=== PATIENT | female | born 1995 | race Caucasian/White ===

== ENCOUNTER → 2018-03-03 | Outpatient (REF) | payer OTHER | LOC: M LAB REF 16:58 | DX: N39.0 Urinary tract infection, site not specified (principal) | CPT/HCPCS: 87186 ==

== ENCOUNTER 2019-02-15 09:21 | Inpatient (IN) | payer OTHER ==
[~2019-02-15] VITALS: Ht 154.9 cm; Wt 63.3 kg
[2019-02-15] VITALS (29 sets, daily range): BP systolic 112–142; BP diastolic 57–86
[2019-02-15] MEDS ORDERED: ACYC800T PO (09:45)
[2019-02-15] MEDS ORDERED: PREN1CHW PO (09:47)
[2019-02-15] MEDS ORDERED: IRON27TA2 PO (09:47)
[2019-02-15] MEDS ORDERED: C-251TAB PO (09:47)
[2019-02-15] MEDS ORDERED: LACTATED RINGER'S 1000 ML IV STA (10:02)
[2019-02-15] MEDS ORDERED: PENICILLIN G POTASSIUM IV 5 MU in D5W MINI-BAG PLUS 100 ML IV STA (10:02)
[2019-02-15 10:45] LABS: HEMATOCRIT 28.6 % (36.0-47.0); HEMOGLOBIN 9.8 g/dl (12.0-15.5); MEAN CORPUSCULAR HEMOGLOBIN 32.5 pg (27.0-33.0); MEAN CORPUSCULAR HGB CONC 34.3 g/dl (32.0-36.5); MEAN CORPUSCULAR VOLUME 94.7 fl (80.0-96.0); PLATELET COUNT, AUTOMATED 202 10^3/uL (150-450); RED BLOOD COUNT 3.02 10^6/uL (4.00-5.40); WHITE BLOOD COUNT 7.8 10^3/uL (4.0-10.0)
[2019-02-15] MEDS ORDERED: FENTANYL 2MCG/ML ROPIVACAINE 0.2% IN 0.9% NACL 100ML IVBAG As Ordered ONE (13:23)
[2019-02-15] MEDS: FENTANYL/ROPIVACAINE/NACL BAG 100 ML EPIDURAL SCH ×2 (15:05→20:59)
[2019-02-15] MEDS: LR 1,000 ML IV SCH ×2 (15:07→20:25)
--- NOTE | 2019-02-15 15:11 | HPEPDOC ---
Obstetrical History & Physical General Date of Admission Feb 15, 2019 at 10:05 History of Present Illness OB Considerations: - GBS postive - No PCN allergy - H/O MRSA, Negative swab #1 08/11/18, Swab #2, 08/23/18 Swab #3, 12/07/18: MRSA PCR on L&D Amy is a 24yo G1 at 38+4wks by LMP (JUSTIN [id number]) presents with ROM at 0000 [id number] - clear. She reports contractions every 5-6mins. She denies vaginal bleeding. Reports active movement. 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 Surgical History: Tonsilectomy, Lutts teeth, Other (Sting Ray Sabina removed from foot) Family History Family History Uncle: Down Syndrome Social History Marital Status: Psychosocial History: No pertinent psych hx * Smoker: non-smoker Alcohol: Denies Imunizations Tdap status: current Influenza Status: needs Allergies Coded Allergies: morphine (Verified Allergy, Intermediate, RASH, 02/15/19) TAPE (Verified Adverse Reaction, Mild, SKIN BLISTERS, 02/15/19) SILK TAPE Medications Scheduled Acyclovir (Acyclovir) 800 Mg Tablet, 800 MG PO DAILY Ascorbic Acid (Vitamin C) 250 Mg Tablet, 1 TAB PO BID Ferrous Gluconate (Iron) 236 Mg Tablet, 1 TAB PO BID Miscellaneous Medications Comb No.42/Folic Acid (Prena1 Chew Tablet) 1.4 Mg Tab.ch.bph, 1 CHW PO Physical Examination Physical Examination GENERAL: Alert and oriented times three. ABDOMEN: Gravid and non-tender to touch. FETUS: Is vertex (VTX) by sterile vaginal examination (SVE), fetus is vertex (VTX) by Abhilash. HEART RATE: Regular rate and rhythm. LUNGS: Clear to auscultation (CTA). EXTREMITIES: No edema. EFW 3300mg Pelvis Adequate for trial of labor Laboratory Data 24H LABS Laboratory Tests 2 02/15/19 10:07: Serology Scanned Report Hepatitis B Testing 02/15/19 10:33: Nucleated Red Blood Cells % (auto) 0.0 CBC/BMP Laboratory Tests 02/15/19 10:33 Red Blood Count 3.02 L, Mean Corpuscular Volume 94.7, Mean Corpuscular Hemoglobin 32.5, Mean Corpuscular Hemoglobin Concent 34.3, Red Cell Distribution Width 13.0 Urine Culture: No Growth Pertinent Laboratoy Data Blood Type: O+ RBC Antibody Screen: Negative HIV: Negative Hepatitis B: Negative Hepatitis C: Unknown Rapid Plasma Reagin: Nonreactive Rubella: Immune Varicella: Immune Chlamydia/Gonorrhea: Negative Group B Streptococcus: Positive Quad Screen Test: Negative Cystic Fibrosis: Negative Glucose Tolerance Test: 101 Anatomy Ultrasound Ultrasound Date: October 06, 2018 Placenta Location: Posterior Normal Anatomy: Yes Placenta Previa: No Steroid Therapy Steroid Therapy: No Vaginal Examination Dilation: 4 cm Effacement: 70% Station: -2 Cervical Consistency: Soft Cervical Position: Middle Presentation: Cephalic presentation Position: Vertex (occiput) Assessment Heart Rate (FHR): 130 Variability: Moderate Accelerations: Positive Decelerations: None Tocometer Contractions: Yes Frequency: regular, other (5-6) Duration: less than 60 seconds Strength: palpated as moderate Multi-drug resistant Organism: MRSA (3 Negative MRSA swabs) Assessment/Plan Assessment Amy is a 24yo G1 at 38+4wks by LMP (JUSTIN [id number]) grossly SROM at 0000 [id number] - clear. Cat I FHT. 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 Diet: clear. Group B Streptococcus (GBS) Positive - PCN ordered. Labs and intravenous (IV) per unit protocol. Counseled on Pitocin and augmentation of labor. Lactated Ringers (LR): Bolus [55] mL, then at [125] mL/hr. MRSA PCR ordered. Anesthesia consult PRN per patient request. Intermittent monitoring unless on Pitocin or otherwise indicated. Recheck DCE 4 to 6 hours from last exam or sooner if indicated. Minnie Oropeza DO Labor and Delivery Counseling I discussed external and internal monitoring and indicated, augmentation of labor, hemorrhage and blood transfusions (and risks of blood transfusions), antibiotic use, obstetric lacerations, and indications for operative vaginal delivery and c/s. Patient verbalized understanding and all questions were answered. MINNIE OROPEZA DO Feb 15, 2019 12:31
[2019-02-15] MEDS: PENICILLIN G POTASSIUM IV 2.5 MU in APPROPRIATE DILUENT 1 EA IV SCH ×3 (15:12→23:14)
[2019-02-15] MEDS ORDERED: ePHEDrine SULFATE 25 MG/5 ML(5MG/ML) SYRINGE IV PRN (15:30)
[2019-02-15] MEDS ORDERED: REFRIGERATOR IV KEYS XX PRN (15:30)
[2019-02-15] MEDS ORDERED: ONDANSETRON 4MG/2ML VIAL (J2405) IV PRN (15:30)
[2019-02-15] MEDS ORDERED: NALOXONE INJ 0.4 MG/1 ML VIAL (J2310) IV PRN (15:30)
[2019-02-15] MEDS ORDERED: LACTATED RINGER'S 1000 ML IV PRN (15:30)
[2019-02-15] MEDS ORDERED: EPIDURAL/PCA KEYS XX PRN (15:30)
[2019-02-15] MEDS ORDERED: EPIDURAL COMMENT XX SCH (15:30)
[2019-02-15] MEDS ORDERED: diphenhydrAMINE INJ 50MG/ML VIAL (J1200) IV PRN (15:30)
[2019-02-15] MEDS ORDERED: OXYTOCIN DRIP 30 UNITS in APPROPRIATE DILUENT 1 EA IV SCH (15:45)
[2019-02-15] MEDS ORDERED: ACETAMINOPHEN 500 MG TAB PO ONE (20:45)
--- NOTE | 2019-02-15 20:47 | IPNPDOC ---
Text Note Date of Service The patient was seen on 02/15/19. NOTE OB Considerations: - GBS postive - No PCN allergy - H/O MRSA, Negative swab #1 08/11/18, Swab #2, 08/23/18 Swab #3, 12/07/18: MRSA PCR on L&D, MRSA PCR on admission negative Amy is a 24yo G1 at 38+6wks by LMP (JUSTIN [id number]) presents with ROM at 0000 [id number] - clear. Went to recheck. She has had an epidural placed though still having some pain, and pitocin started for augmentations due to contractions spacing out. VS: reviewed, afebrile, normotensive GEN: WNWD, NAD ABD: Soft, Gravid EXT: no edema DCE 2029 Cat II: 135bpm, mod variability, + Accelerations, + variable TOCO: q2min on 10mU of Pitocin A/P: SIUP at 38+6wks, ROM at 0000 [id number], most recently Cat II for variable corrected with position changes - Continue to monitor - Continue PCN for GBS positive - Continue Pitocin and titrate per protocol - Continue IVF - Consult Anesthesia for pain control - Recheck DCE 2 to 4 hours from last exam or sooner if indicated. DO LISANDRA Patricia Fishbone, I+O VSCleveland, I+O Laboratory Tests 02/15/19 10:33 Red Blood Count 3.02 L, Mean Corpuscular Volume 94.7, Mean Corpuscular Hemoglobin 32.5, Mean Corpuscular Hemoglobin Concent 34.3, Red Cell Distribution Width 13.0 Vital Signs Date Time Temp Pulse Resp B/P (MAP) Pulse Ox O2 Delivery O2 Flow Rate FiO2 02/15/19 16:20 98.1 88 131/61 (84) 02/15/19 13:11 18 PABLITO OROPEZA DO Feb 15, 2019 20:47
[2019-02-16] VITALS (36 sets, daily range): BP systolic 110–159; BP diastolic 58–85
[2019-02-16] MEDS ORDERED: OXYTOCIN DRIP 30 UNITS in APPROPRIATE DILUENT 1 EA IV SCH ×2 (02:15→05:15)
[2019-02-16] MEDS ORDERED: METHYLERGONOVINE MALEATE 0.2 MG/ML VIAL (J2210) IM ONE (02:15)
[2019-02-16] MEDS ORDERED: miSOPROStol 200 MCG TAB (S0191) PR ONE (02:15)
[2019-02-16] MEDS ORDERED: MEASLES,MUMPS,RUBELLA VACCINE INJ (MMR-II) (90707) SC SCH (02:30)
[2019-02-16] MEDS ORDERED: DOCUSATE SODIUM 100 MG CAP PO PRN (02:30)
[2019-02-16] MEDS ORDERED: AMPICILLIN SOD/SULBACTAM SOD 3 GM in D5W MINI-BAG PLUS 100 ML IV ONE (02:30)
[2019-02-16] MEDS ORDERED: IBUPROFEN 600 MG TAB PO PRN (02:30)
[2019-02-16] MEDS ORDERED: METOCLOPRAMIDE INJ 10MG/2ML VIAL (J2765) IV PRN (02:30)
[2019-02-16] MEDS ORDERED: ACETAMINOPHEN TAB 650MG DOSE (2X325MG) PO PRN (02:30)
[2019-02-16] MEDS ORDERED: ONDANSETRON 4MG/2ML VIAL (J2405) IV PRN (02:30)
[2019-02-16] MEDS ORDERED: RHOGAM 300 MCG (1500 IU) INJ (J2790) IM SCH (02:30)
[2019-02-16] MEDS ORDERED: DIBUCAINE 1% OINTMENT 30GM TOP PRN (02:30)
--- NOTE | 2019-02-16 02:49 | DNPDOC ---
[facility] Delivery Note Delivery Note DATE OF DELIVERY: 16Feb2019 PREDELIVERY DIAGNOSIS: 40-0/7 weeks' gestation and labor. POST DELIVERY DIAGNOSIS: Delivered. PROCEDURE: [Spontaneous vaginal delivery]. RANCH HAND SUPERVISOR: Dr. Crook] ANESTHESIA: Epidural. ESTIMATED BLOOD LOSS: [500] mL. FINDINGS: [8] pound [6] ounce [3810 grams] Female (Felicia) infant, Score [8]/[9], nuchal cord times [none]. DELIVERY SUMMARY: Amy is a 24yo [id number] at 39+0wks who was admitted to labor and delivery for SROM on 0000 [id number]. She progressed to C/C/+2. She had a good epidural anesthesia. With excellent maternal effort, the delivered OA, restituted LOT. The right anterior shoulder delivered with gentle downward traction followed by the rest of the body. Infant placed on maternal abdomen, short cord, and had vigorous spontaneous cry. Delayed cord clamping observed until cord stopped pulsing. Cord then doubly clamped and cut by father of infant. Cord blood was collected per routine. Pitocin bolused per protocol was started. Gentle traction on the cord was performed, however no give on the placenta that demonstrated separation. The cord partially avulsed, and manual extraction of the placenta was performed. Brisk bleeding was noted after the delivery, and lower uterine segment was felt to be boggy. Multiple uterine sweeps were performed. Straight catheterization was performed with scant urine noted. 1000mcg of cytotec was placed GA. A Transabdominal US was also performed showed small area of fluid collection at the fundus. Another bimanual and uterine sweep was performed with minimal clots. Methergine 0.2mg IM x1 was given. Uterus was notable again to be slightly boggy and firmed to massage. After last bimanual, the uterus was noted to be firm and bleeding resolved to normal bleeding. Placenta inspected and felt to be intact with succenturiate lobe. 3VC. Will send placenta to pathology. On inspection of the vaginal and perineum, a small 2nd degree and bilateral labial. The 2nd degree was repaired in usual fashion with a 3-0 vicryl. The bilateral labials were repaired with interrupted stitches of 4-0 vicryl. Good approximation was noted. Bleeding assessed and again noted to be minimal and uterus firm to massage. Transabdominal US performed again, and homogenous EMS noted, with small fundal fluid collection. Unasyn 3gm x1 post delivery. CBC in 4 hrs after delivery. Methergine 0.2mg PO q6h x24hrs. VS stable. EBL 500cc Mother and infant stable and bonding when physician left the room. DO JOHNNA Patricia CRYSTAL B. DO Feb 16, 2019 02:49
[2019-02-16] MEDS ORDERED: OXYTOCIN 30 UNITS IN 0.9% NaCl 500ML IV BAG (J2590) As Ordered ONE (05:19)
[2019-02-16 06:40] LABS: HEMATOCRIT 26.7 % (36.0-47.0); HEMOGLOBIN 9.1 g/dl (12.0-15.5); MEAN CORPUSCULAR HGB CONC 34.1 g/dl (32.0-36.5); PLATELET COUNT, AUTOMATED 186 10^3/uL (150-450); RED BLOOD COUNT 2.84 10^6/uL (4.00-5.40); WHITE BLOOD COUNT 12.7 10^3/uL (4.0-10.0)
--- NOTE | 2019-02-16 07:07 | IPNPDOC ---
Text Note Date of Service The patient was seen on 02/16/19. NOTE 24yo [id number] s/p complicated by manual extraction of the placenta and uterine atony with EBL of 500cc. She is having moderate bleeding, but improved with every pad change. She is ambulating without dizziness or lightheadedness, denies chest pain or shortness of breath. VS: Reviewed, mildly hypertensive, nontachycardic, afebrile GEN: WNWD, NAD ABD: Soft, Uterus Firm at U, without gush of blood on uterine massage EXT: No edema CBC reviewed Initial HCT 28 down to 26 A/P: 24yo [id number] s/p complicated by manual extraction of the placenta and uterine atony with EBL of 500cc. She received Cytotec 1000mcg UT, Pit Bolus and then pitocin maintenance, Methergine 0.2mg IM and is currently on a Methergine Series. Unasyn 3gm x1. T&C for 2 units and verbally agrees to transfusion should it be necessary. - Repeat CBC in 4 hrs - Discussed possibility of transfusion if CBC or symptomatic from blood loss - currently stable - Discussed D&C if bleeding worsens - Given patient's improvements, okay to transfer to mother - baby unit DO LISANDRA Patricia,[place], I+O VSCleveland, I+O Laboratory Tests 02/15/19 10:33 Red Blood Count 3.02 L, Mean Corpuscular Volume 94.7, Mean Corpuscular Hemoglobin 32.5, Mean Corpuscular Hemoglobin Concent 34.3, Red Cell Distribution Width 13.0 02/16/19 06:31 Red Blood Count 2.84 L, Mean Corpuscular Volume 94.0, Mean Corpuscular Hemoglobin 32.0, Mean Corpuscular Hemoglobin Concent 34.1, Red Cell Distribution Width 12.6 Vital Signs Date Time Temp Pulse Resp B/P (MAP) Pulse Ox O2 Delivery O2 Flow Rate FiO2 02/16/19 04:08 73 18 147/82 (103) 02/16/19 01:21 99.6 I&O- Last 24 Hours up to 6 AM 02/16/19 05:59 Intake Total 5289.7 ml Output Total 2300 ml Balance 2989.7 ml PABLITO OROPEZA DO Feb 16, 2019 07:06
[2019-02-16] MEDS: PRENATAL VITAMINS CHEWABLE TABLET PO SCH (07:34)
[2019-02-16] MEDS: ACETAMINOPHEN 500 MG TAB PO PRN ×2 (07:35→15:45)
[2019-02-16] MEDS: METHYLERGONOVINE MALEATE 0.2 MG TAB PO SCH ×3 (09:24→19:23)
[2019-02-16 12:33] LABS: HEMATOCRIT 27.3 % (36.0-47.0); HEMOGLOBIN 9.5 g/dl (12.0-15.5); MEAN CORPUSCULAR HEMOGLOBIN 33.7 pg (27.0-33.0); MEAN CORPUSCULAR HGB CONC 34.8 g/dl (32.0-36.5); MEAN CORPUSCULAR VOLUME 96.8 fl (80.0-96.0); PLATELET COUNT, AUTOMATED 191 10^3/uL (150-450); RED BLOOD COUNT 2.82 10^6/uL (4.00-5.40); WHITE BLOOD COUNT 12.5 10^3/uL (4.0-10.0)
[2019-02-16] MEDS: IBUPROFEN 800 MG TAB PO PRN ×2 (13:46→21:58)
[2019-02-17] MEDS: METHYLERGONOVINE MALEATE 0.2 MG TAB PO SCH (02:45)
[2019-02-17 05:58] VITALS: BP 141/84
[2019-02-17] MEDS: ACETAMINOPHEN 500 MG TAB PO PRN ×2 (07:00→16:48)
--- NOTE | 2019-02-17 07:55 | IPNPDOC ---
Progress Note Date of Service: Feb 17, 2019 Day#: 1 Progress Note SUBJECT: Amy is a 24-year-old 1 now Para 1001 status post uncomplicated spontaneous vaginal delivery at 40+0 weeks' at approximately on [id number] of a Female (Felicia) 8 pounds 6 ounces (3810 grams) with post vaginal laceration and repair, EBL 500cc, doing well day # 1. She has been ambulating, voiding spontaneously without issue, passing flatus and tolerating regular diet. Breast feeding without issue. Reports lochia is less than a normal period. Reports some cramping with otherwise pain is controlled. OBJECTIVE: VITAL SIGNS: Normotensive to Mild Range, nontachycardic, afebrile. Alert and oriented times three. Abdomen: Fundus firm at U-1. Soft, NTTP. Minimal lochia. ASSESSMENT: Amy is a 24-year-old 1 now Para 1001 status post uncomplicated spontaneous vaginal delivery at 40+0 weeks' at approximately on [id number], doing well on day 1. Mild range blood pressures in the setting of methergine series, if continue to be elevated today - will obtain serum labs, afebrile, hemodynamically stable with no evidence of infection. PLAN: 1. Continue Routine obstetric care 2. Encourage breast feeding and ambulation. 3. Mirena for contraception. 4. Tylenol and Motrin for pain. Colace for bowel regime 5. VTE: early ambulation 6. Dispo: home on day 2 Pablito Oropeza DO VS, I&O, 24H, Fishbone Vital Signs/I&O Vital Signs Date Time Temp Pulse Resp B/P (MAP) Pulse Ox O2 Delivery O2 Flow Rate FiO2 02/17/19 05:58 98.6 60 19 141/84 (103) Laboratory Data 24H LABS Laboratory Tests 2 02/16/19 11:54: Nucleated Red Blood Cells % (auto) 0.0 CBC/BMP Laboratory Tests 02/16/19 11:54 Red Blood Count 2.82 L, Mean Corpuscular Volume 96.8 H, Mean Corpuscular Hemoglobin 33.7 H, Mean Corpuscular Hemoglobin Concent 34.8, Red Cell Distribution Width 12.9 PABLITO OROPEZA DO Feb 17, 2019 07:55
[2019-02-17] MEDS: PRENATAL VITAMINS CHEWABLE TABLET PO SCH (08:02)
[2019-02-17] MEDS ORDERED: INFLUENZA QUADRIVALENT PF VACCINE 0.5ML SYRINGE (90686) IM ONE (09:00)
[2019-02-17 18:00] VITALS: BP 123/73
[2019-02-17] MEDS: IBUPROFEN 800 MG TAB PO PRN (20:24)
[2019-02-18 05:50] VITALS: BP 140/84
[2019-02-18 07:57] LABS: HEMATOCRIT 21.2 % (36.0-47.0); MEAN CORPUSCULAR HEMOGLOBIN 33.5 pg (27.0-33.0); MEAN CORPUSCULAR VOLUME 98.6 fl (80.0-96.0); PLATELET COUNT, AUTOMATED 186 10^3/uL (150-450); RED BLOOD COUNT 2.15 10^6/uL (4.00-5.40); WHITE BLOOD COUNT 7.4 10^3/uL (4.0-10.0)
[2019-02-18] MEDS: PRENATAL VITAMINS CHEWABLE TABLET PO SCH (08:02)
[2019-02-18 08:04] LABS: HEMOGLOBIN 7.2 g/dl (12.0-15.5)
[2019-02-18 08:29] LABS: ALT/SGPT 15 U/L (12-78); BILIRUBIN,TOTAL 0.2 MG/DL (0.2-1.0); CREATININE FOR GFR 0.54 MG/DL (0.55-1.30); GLOMERULAR FILTRATION RATE > 60.0 (>60); LDH LACTATE DEHYDROGENASE 179 U/L (84-246); URIC ACID 1.6 MG/DL (2.6-6.0)
[2019-02-18] MEDS ORDERED: ACET1TAB55 PO (08:32)
[2019-02-18] MEDS ORDERED: IBUP80TA PO (08:32)
[2019-02-18] MEDS ORDERED: COLA100C5 PO (08:32)
--- NOTE | 2019-02-18 08:50 | OBDS ---
[facility] Obstetrical Discharge Sum. Obstetrical Discharge Summary Robotic Maintenance Technician/Provider: PABLITO OROPEZA DO Date: Feb 18, 2019 : 1 Term: 1 Pre-term: 0 Abortions: 0 Livin VDRL: Non-Reactive Rh: Positive Rubella: Immune Infant Sex: Female Infant Weight: grams (3810) Anesthesia: Regional Anesthesia A/P, Post Course List any complications Admission diagnosis: Rupture of Membranes at Term Discharge diagnosis: Rupture of Membranes at Term, Single Live Condition at Discharge: Good Discharge Instructions: [Home] Activity: No heavy lifting (<10lbs), Pelvic rest for 6 weeks Diet: Regular as Tolerated Medications: Ibuprofen, Acetaminophen, Colace, Continue PO Fe for anemia Labs: prior to discharge, CBC, Pre Eclampsia Work up Follow-up: 6 weeks for visit Hospital Course: Amy is a 24-year-old 1 now Para 1001 status post spontaneous vaginal delivery at 39+0 weeks' at approximately on [id number] of a Female (Felicia) 8 pounds 6 ounces (3810 grams) with post vaginal laceration and repair, EBL 500cc. She had a manual extraction of her placenta and some bleeding due to atony. She received Pitocin, Cytotec MA, and Methergine series with resolution of heavy bleeding. She has remained stable through her hospital stay. She has some mild range blood pressures without symptoms of Pre Eclampsia, labs ordered. She has met all criteria for discharge on day 2. VITAL SIGNS: Normotensive to Mild Range, nontachycardic, afebrile. Alert and oriented times three. Abdomen: Fundus firm at U-1. Soft, NTTP. Minimal lochia. PLAN: 1. Continue Routine obstetric care. No heavy lifting and pelvic rest. 2. Encourage breast feeding and ambulation. 3. Mirena for contraception at 6 weeks. 4. Tylenol and Motrin for pain. Colace for bowel regime. 5. VTE: early ambulation. 6. Strict return precautions discussed. 7. Encouraged hydration 8. Dispo: home on day 2. DO JOHNNA Patricia CRYSTAL B. DO Feb 18, 2019 08:50
[2019-02-18 09:06] LABS: CREATININE,RANDOM URINE 29.9 MG/DL; TOTAL PROTEIN,RANDOM URINE 9.5 MG/DL (0.0-12.0)
== END 2019-02-18 13:15 | disposition home or self-care (01) | DRG 806 ==
LOC: M LDO 09:21 → M LDI 10:05 → M OBS 02-16 09:10
PROVIDERS: ADMIT Obstetrics & Gynecology; ATTEND Obstetrics & Gynecology
PROC: 10E0XZZ Delivery of Products of Conception, External Approach (ICD-10-PCS; principal; 2019-02-16)
PROC: 0KQM0ZZ Repair Perineum Muscle, Open Approach (ICD-10-PCS; 2019-02-16)
PROC: 10D17Z9 Manual Extraction of Products of Conception, Retained, Via Natural or Artificial Opening (ICD-10-PCS; 2019-02-16)
PROC: 0HQ9XZZ Repair Perineum Skin, External Approach (ICD-10-PCS; 2019-02-16)
DX: O48.0 Post-term pregnancy (principal); Z37.0 Single live birth; O72.0 Third-stage hemorrhage; Z3A.38 38 weeks gestation of pregnancy; Z88.5 Allergy status to narcotic agent; O99.820 Streptococcus B carrier state complicating pregnancy; O70.0 First degree perineal laceration during delivery; O70.1 Second degree perineal laceration during delivery; O43.193 Other malformation of placenta, third trimester; O69.81X0 Labor and delivery complicated by cord around neck, without compression, not applicable or unspecified; O69.89X0 Labor and delivery complicated by other cord complications, not applicable or unspecified

== ENCOUNTER → 2019-05-02 | Outpatient (REF) | payer OTHER ==
[~2019-05-02] MED LIST: ACET1TAB55 PO; ACYC800T PO; C-251TAB PO; COLA100C5 PO; IBUP80TA PO; IRON27TA2 PO; PREN1CHW PO
== END ==
LOC: M LAB REF 16:52
PROVIDERS: ATTEND Nurse Practitioner Family
DX: R30.0 Dysuria (principal)